=== PATIENT | female | born 1985 | race Caucasian/White ===

== ENCOUNTER 2016-11-02 21:01 | Outpatient (CLI) | payer SELFPAY ==
[~2016-11-02] VITALS: Ht 152.4 cm; Wt 47.4 kg
[2016-11-02 21:16] VITALS: Ht 152.4 cm; Wt 47.4 kg
[2016-11-02 21:17] VITALS: BP 99/70; PULSE 82; RESP 18
[2016-11-02] MEDS ORDERED: PREN1TAB62 PO (21:20)
[2016-11-02] MEDS: LACTATED RINGER'S 1,000 ML IV SCH ×2 (21:50→23:55)
[2016-11-02] MEDS ORDERED: METOCLOPRAMIDE 10 MG INJ IV ONE (22:30)
[2016-11-02] MEDS ORDERED: ACETAMINOPHEN/CODEINE #3 TAB PO ONE (22:30)
[2016-11-02 22:35] LABS: BASOPHILS % 0.2 % (0.0-2.0); EOSINOPHILS # 0.1 10^3/ul (0.0-0.5); EOSINOPHILS % 0.7 % (0.0-7.0); HEMATOCRIT 31.7 % (37.0-47.0); HEMOGLOBIN 10.9 g/dl (12.0-16.0); LYMPHOCYTES # 0.9 10^3/ul (0.8-2.9); LYMPHOCYTES % 10.6 % (15.0-51.0); MEAN CORPUSCULAR HEMOGLOBIN 31.2 pg (29.0-33.0); MEAN CORPUSCULAR HGB CONC 34.3 g/dl (32.0-37.0); MEAN CORPUSCULAR VOLUME 90.9 fl (82.0-101.0); MEAN PLATELET VOLUME 8.6 fl (7.4-10.4); MONOCYTE # 0.5 10^3/ul (0.3-0.9); MONOCYTES % 5.4 % (0.0-11.0); NEUTROPHIL # 7.4 10^3/ul (1.6-7.5); NEUTROPHILS % 83.1 % (39.0-77.0); PLATELET COUNT 192 10^3/UL (140-440); RED BLOOD COUNT 3.49 10^6/ul (4.20-5.40); RED CELL DISTRIBUTION WIDTH 13.5 % (11.5-14.5); UNCORRECTED WBC 8.9 10^3/ul (4.8-10.8); WHITE BLOOD COUNT 8.9 10^3/ul (4.8-10.8)
[2016-11-02 22:39] LABS: CONDITION 1
--- NOTE | 2016-11-02 22:45 | RADRPT ---
PROCEDURE: Obstetrical ultrasound greater than 14 weeks CLINICAL INDICATION: Contractions. Evaluate cervical length. TECHNIQUE: Real time sonographic imaging of the gravid uterus is performed transabdominally and mu ltiple static shen scale and Doppler images are submitted for review as are measurements. The image s are reviewed on the PACS. COMPARISON: No relevant exams are available FINDINGS: The cervical os is closed with a normal cervical length of 5.3 cm. There is a single living intrauterine gestation in cephalic presentation. The heart beat is estimated at 135 bpm. Placenta is posterior and grade 0. There is no evidence of placenta previa or abruption. RPTAT:HJJR IMPRESSION: 1. Single viable intrauterine gestation in cephalic presentation with the cervical length estimated at 5.3 cm. 2. Posterior grade 0 placenta. Physician Daniel Date Time Electronically viewed and signed by Physician Daniel on 11/02/2016 22:44 /
[2016-11-02 23:32] LABS: ADD UMIC YES; URINE BILIRUBIN (Dip) NEGATIVE (NEGATIVE); URINE BLOOD (Dip) NEGATIVE (NEGATIVE); URINE COLOR LT. YELLOW (YELLOW); URINE GLUCOSE (Dip) NEGATIVE (NEGATIVE); URINE KETONES (Dip) NEGATIVE (NEGATIVE); URINE LEUKOCYTE ESTERASE (Dip) TRACE (NEGATIVE); URINE NITRITE (Dip) NEGATIVE (NEGATIVE); URINE TOTAL PROTEIN (Dip) NEGATIVE (NEGATIVE); URINE UROBILINOGEN (Dip) 0.2 E.U./dL (0.1-1.0)
[2016-11-02 23:42] LABS: BACTERIA,URINE MODERATE; SQUAMOUS EPITHELIAL CELL,UR MODERATE; URINE RBCS 0-2 /HPF (0)
--- NOTE | 2016-11-03 00:12 | QN ---
Documentation Comment 31-year-old with IUP at 21 weeks and [address] day [address] care [address] Dr[address] fabiola Patel presented with complaint of left-sided flank pain as well as nausea/vomiting this afternoon started. Per patient her symptoms subsided. She denies any fever or chills. She denies any urinary symptoms. She denies any pelvic pressure, contractions, leaking of fluid or vaginal bleeding. Physical examination: GA:A&O, NAD Abdomen: Soft, gravid, Non tender, no rebound tenderness fundal height consistent with gestational age No CVA tenderness, no suprapubic tenderness, no uterine tenderness, No contraction seen in the monitor heart tones: 136 bpm UA: Negative Cervical length more than 4 cm PROCEDURE: Obstetrical ultrasound greater than 14 weeks CLINICAL INDICATION: Contractions. Evaluate cervical length. TECHNIQUE: Real time sonographic imaging of the gravid uterus is performed transabdominally and multiple static shen scale and Doppler images are submitted for review as are measurements. The images are reviewed on the PACS. COMPARISON: No relevant exams are available FINDINGS: The cervical os is closed with a normal cervical length of 5.3 cm. There is a single living intrauterine gestation in cephalic presentation. The heart beat is estimated at 135 bpm. Placenta is posterior and grade 0. There is no evidence of placenta previa or abruption. RPTAT:HJJR IMPRESSION: 1. Single viable intrauterine gestation in cephalic presentation with the cervical length estimated at 5.3 cm. 2. Posterior grade 0 placenta. Assessment: IUP at 21 weeks and 1 day Left flank pain with nausea Likely related to muscle cramp. No clear evidence of pyelonephritis, UTI or labor Symptoms resolved after hydration and a dose of Tylenol 3 Patient was reassured labor precaution discussed with the patient Follow-up with her primary OB for the next couple of days to a week recommended RT to triage as needed any other complaints or concerns including fever, chills , abnormal vaginal discharge, pelvic pressure or pain or contractions or any other problem SUNNY JAMES MD Nov 03, 2016 00:12
== END 2016-11-02 23:55 | disposition home or self-care (01) ==
LOC: L-D 21:01 → OBT 21:01
PROVIDERS: ATTEND Obstetrics & Gynecology
DX: O60.02 Preterm labor without delivery, second trimester (principal); O21.2 Late vomiting of pregnancy; Z3A.21 21 weeks gestation of pregnancy
CPT/HCPCS: 76817; 81001; 85025; 87086; 96360; 96361; G0463; 81003; J7120